=== PATIENT | male | born 1995 | race Two or more races ===

== ENCOUNTER 2025-02-15 17:33 | Emergency (ER) | payer MEDICAID, SELFPAY ==
[2025-02-15 17:34] VITALS: BMI 59.7
[2025-02-15 18:00] VITALS: BP 138/83; PULSE 116; RESP 18; TEMP 37.1; O2SAT 96; BMI 58.8
--- NOTE | 2025-02-15 18:02 | XR_ITS ---
Examination: CT abdomen and pelvis without contrast. Coronal 3-D reconstructions. Sagittal 2-D reconstructions. Date and time of exam:February 15, 2025 at 1859 hours INDICATIONS: Right lower abdominal pain beginning 3 days ago CTDI: vol (mGy): 23.1 DLP: (mGycm): 1836 Technique: Axial images of the abdomen have been obtained, 3 mm slice thickness Intravenous contrast material has not been administered. Low dose protocols were performed. One or more of the following dose reduction techniques were used; automated exposure control, adjustment of the mA and/or KV according to patient size, use of iterative reconstruction technique. Findings: Subtle opacity right base, consider mild right base pneumonia No visualized adverse splenic lesion No gallstones No hydronephrosis Atrophic left kidney Markedly abnormal small bowel loops in the central abdomen, wall thickening and marked edema surrounding the bowel loops Contracted urinary bladder No prostatomegaly Osseous structures are intact IMPRESSION: Mild right base pneumonia. Markedly abnormal small bowel loops in the central abdomen, wall thickening and marked edema surrounding the bowel loops in the mesentery, differential would include severe enteritis such as Crohn's disease, ischemic small bowel, early small bowel obstruction Recommend repeating this examination with intravenous contrast
--- NOTE | 2025-02-15 18:03 | PD.EDRME ---
Rapid Medical Screening Exam RME Arrival date/time: 02/15/25 17:33 29-year-old male presents to the emergency department today for complaints of abdominal pain and constipation Chief Complaint: Abdominal Pain Vital signs: Vital Signs Temperature 98.8 F 02/15/25 18:00 Pulse Rate 116 H 02/15/25 18:00 Respiratory Rate 18 02/15/25 18:00 Blood Pressure 138/83 H 02/15/25 18:00 Pulse Oximetry (%) 96 02/15/25 18:00 Oxygen Delivery Method Room Air 02/15/25 18:00
[2025-02-15 18:38] LABS: Basophils % (Auto) 0 % (0-2.5); Eosinophils # (Auto) 0.2 Thou/mm3 (0.0-0.5); Eosinophils % (Auto) 1 % (0-10); Hemoglobin 15.1 g/dL (13.5-16.0); Immature Granulocytes % (Auto) 1 % (0-0); Immature Granulocytes Auto 0.28 Thou/mm3 (0.00-0.00); Lymphocytes # (Auto) 2.1 Thou/mm3 (1.0-4.8); Lymphocytes % (Auto) 11 % (10-50); Mean Corpuscular HGB Conc 34.3 g/dl (31.0-37.0); Mean Corpuscular Hemoglobin 30.1 pg (25.0-35.0); Mean Corpuscular Volume 88 fL (80-100); Monocytes # (Auto) 2.3 Thou/mm3 (0.0-0.8); Monocytes % (Auto) 12 % (0-12); Neutrophils # (Auto) 14.8 Thou/mm3 (1.8-7.7); Neutrophils % (Auto) 75 % (37-80); Nucleated Red Blood Cell % 0 /100 WBC (0); Platelet Count 298 Thou/mm3 (140-440); RDW Standard Deviation 41.8 fL (35.1-43.9); Red Blood Count 5.02 Miln/mm3 (4.50-5.90); White Blood Count 19.7 Thou/mm3 (3.8-10.6)
[2025-02-15 18:40] LABS: Collection Type, Urine Clean Catch
[2025-02-15 18:45] LABS: Path Review Blood Smear Sent to Pathologist
[2025-02-15 18:49] LABS: Alanine Aminotransferase 27 U/L (10-49); Albumin, Serum 4.5 gm/dL (3.5-5.0); Albumin/Globulin Ratio 1.3 (1.2-2.2); Alkaline Phosphatase 69 U/L (46-116); Anion Gap 8 (7-16); Aspartate Amino Transferase 16 U/L (0-34); BUN/Creatinine Ratio 11 Ratio (12-20); Bilirubin,Total 1.4 mg/dL (0.3-1.2); Blood Urea Nitrogen 11 mg/dL (9-23); Calcium 9.2 mg/dL (8.3-10.6); Calcium (Corrected) 9.2 mg/dL (8.5-10.1); Carbon Dioxide 26.9 mMol/L (20.0-31.0); Chloride 101 mMol/L (98-107); Globulin 3.4 gm/dL (2.3-3.5); Glucose 119 mg/dL (74-106); Lipase 25 U/L (12-53); Osmolality,Calculated 272 (275-295); Potassium 4.4 mMol/L (3.4-5.1); Sodium 136 mMol/L (136-145); Total Protein 7.9 gm/dL (5.7-8.2); eGFR > 60 See Note
[2025-02-15 19:02] LABS: Bilirubin,Urine 1+ (Negative); Blood,Urine 1+ (Negative); Clarity,Urine Clear (Clear/Hazy); Color,Urine Yellow (Lt Yel-Yel); Culture Indicated,Urine Not Indicated; Glucose, Urine Negative (Negative); Hyaline Casts,Urine < 1 /hpf (0-1); Ketones,Urine 1+ (Negative); Leukocyte Esterase,Urine Negative (Negative); Nitrite,Urine Negative (Negative); PH,Urine 6.5 (5.0-7.0); Protein,Urine 3+ (Neg - Trace); RBC,Urine 11 /hpf (0-3); Specific Gravity,Urine 1.032 (1.001-1.035); Squamous Epithelial Cell,Urine 1 /hpf (0-5); WBC,Urine 3 /hpf (0-5)
[2025-02-16 03:34] VITALS: BP 158/112; PULSE 110; RESP 18; O2SAT 93
[2025-02-16 04:09] VITALS: BP 126/83; PULSE 111; RESP 18; RESP 19; TEMP 37.6; O2SAT 96
--- NOTE | 2025-02-16 04:20 | XR_ITS ---
Examination: CT abdomen with intravenous contrast CT pelvis with intravenous contrast 2-D coronal reconstructions 2-D sagittal reconstructions Date and time of exam:February 16, 2025 at 0549 hours Comparison February 15, 2025 study without contrast. CTDI: vol (mGy) 23.9 DLP: (mGycm) 1615 Technique: Multiple axial sections of the abdomen and pelvis have been obtained. 64 slice high-resolution scanner used. 3 mm axial sections have been obtained, post intravenous injection abdominal pain beginning 3 days ago 2-D sagittal, coronal reconstructions obtained. Low dose protocols were performed. One or more of the following dose reduction techniques were used; automated exposure control, adjustment of the mA and/or KV according to patient size, use of iterative reconstruction technique. Findings: Soft nodular opacities at the right base consistent with pneumonia No focal liver or splenic lesions No gallstones Atrophic left kidney Markedly abnormal small bowel loops in the midabdomen are again noted, wall thickening and very pronounced mesenteric edema There are multiple small periaortic and paracaval lymph nodes as well as lymph nodes in the mesentery The bladder is contracted Edema extends into the pelvis The osseous structures appear intact Negative for pneumoperitoneum IMPRESSION: Soft nodular opacities at the right base consistent with pneumonia Markedly abnormal small bowel loops in the midabdomen are again noted, wall thickening and very pronounced mesenteric edema, with periaortic pericaval and mesenteric lymphadenopathy. Differential would include severe enteritis such as Crohn's disease, ischemic small bowel as well as mesenteric and small bowel involvement by tumor such as Hodgkin's disease, non-Hodgkin's lymphoma, clinical correlation is advised Recommend surgical consultation
--- NOTE | 2025-02-16 04:42 | PD.EDABDPN ---
ED Abdominal Pain RME/HPI General Chief Complaint: Abdominal Pain Stated complaint: RLQ ABD PAIN X 3 DAYS; CONSTIPATED Time seen by provider: 02/16/25 04:44 Arrival date/time: 02/15/25 17:33 RME / HPI RME / HPI narrative: 02/15/25 17:33 29-year-old male presents to the emergency department today for complaints of abdominal pain and constipation DR PERSON MAIN ED EVALUATION: 29 y/o male with Hx of Obesity presents to ED c/o abdominal pain and constipation x 4 days. Patient had 1 episode of diarrhea while in ED. Patient report not eating due to lack of appetite. Patient denies mucus, bloody and tarry stool or any other associated symptoms or aggravating factors. No modifying factors, no radiation, no migration. No pain reported overall. No other concerns or complaints expressed at this time. Related Data Allergies Allergy/AdvReac Type Severity Reaction Status Date / Time No Known Allergies Allergy Verified 02/15/25 17:36 Review of Systems Review of Systems Systems Reviewed: All systems reviewed, normal except as documented Past Medical History Past Medical History GASTROINTESTINAL: Positive Obesity ED Exam Narrative Physical exam: GENERAL APPEARANCE: alert and oriented x 4, well-developed, well-nourished, no acute distress, Obese VITALS: All vitals were reviewed and the pulse ox is 96% on room air, which is normal according to my interpretation. HEENT: Normocephalic, atraumatic; pupils equal, round, reactive to light; EOMI; mucous membranes pink, moist; oropharynx clear NECK: Supple LUNGS: CTABL; no wheezes, no rales, no rhonchi HEART: Regular rate, regular rhythm; normal S1, S2; no murmurs ABDOMEN: non distended; normal BS; soft, right-sided abdominal tenderness, no guarding, no rebound; no masses, no organomegaly, no hernia BACK: no CVA tenderness EXTREMITIES: atraumatic; no edema NEUROLOGIC: awake; alert and oriented x4; cranial nerves II-XII grossly intact; no focal sensory or motor deficits PSYCHIATRIC: appropriate mood and affect SKIN: warm, dry, normal color; no rashes Course Quality Measures none Orders Category Date Time Status CT Screening NOW Care 02/16/25 04:[address] abdomen pelvis w con Stat Exams 02/16/25 04:[address] abdomen pelvis wo con Stat Exams 02/15/25 18:02 Completed CBC Stat Lab 02/15/25 18:18 Completed Comprehensive Metabolic Panel Stat Lab 02/15/25 18:18 Completed Lipase Stat Lab 02/15/25 18:18 Completed Path Review Blood Smear Stat Lab 02/15/25 18:18 Completed UA, C/S IF [Urinalysis, C/S if Indicated] Stat Lab 02/15/25 18:15 Completed Vital Signs Vital signs: Vital Signs Temperature 98.8 F 02/15/25 18:00 Pulse Rate 116 H 02/15/25 18:00 Respiratory Rate 18 02/15/25 18:00 Blood Pressure 138/83 H 02/15/25 18:00 Pulse Oximetry (%) 96 02/15/25 18:00 Oxygen Delivery Method Room Air 02/15/25 18:00 Abdominal Pain MDM MDM Narrative MDM Narrative:: Scribe Attestation: I, Armida Parekh, am scribing for and in the presence of Dr. Person. Provider Notation: Although this document has been carefully reviewed, there may still be some phonetic and other typographical errors.? These errors are purely grammatical due to imperfections in the software program and should not be construed in any way to? compromise the substance of the patient's medical care during this visit. 0600: Care signed out to [facility] day shift provider. Past medical, surgical, social and family history reviewed. Vitals and home medications reviewed. Results and treatment plan discussed. They will assume the care of the patient at this time and will follow the patient, pending CT and final disposition. Patient data External records reviewed:: [facility] previous records (No prior ED records available for review.) Clinical information provided by:: patient Social determinants that could affect healthcare access:: none Patient has the following chronic illnesses:: Obesity How is presenting disease/condition affected by chronic disease/condition?: exacerbated by Evaluation data The following diagnostics were reviewed and interpreted by me:: lab results and radiology exam(s) Lab and/or radiology exams considered but not ordered:: None Interpretation Summary: RADIOLOGY Abdomen/Pelvis CT w/o Contrast: Patient: GARRETT SMALLWOOD [facility]. Record#: [id number] Birthdate: 1995 Age/Sex: 29 / M Location: [facility] Attending Dr: Ordering Physician: Piotr BORJA)Say NP Date of Service: 02/15/25 Procedure(s): CT abdomen pelvis wo con Accession Number(s): [id number] cc: Piotr BORJA),Say HOPKINS; Elder Murillo MD; bAram Guerrero MD~ Examination: CT abdomen and pelvis without contrast. Coronal 3-D reconstructions. Sagittal 2-D reconstructions. Date and time of exam:February 15, 2025 at 1859 hours INDICATIONS: Right lower abdominal pain beginning 3 days ago CTDI: vol (mGy): 23.1 DLP: (mGycm): 1836 Technique: Axial images of the abdomen have been obtained, 3 mm slice thickness Intravenous contrast material has not been administered. Low dose protocols were performed. One or more of the following dose reduction techniques were used; automated exposure control, adjustment of the mA and/or KV according to patient size, use of iterative reconstruction technique. Findings: Subtle opacity right base, consider mild right base pneumonia No visualized adverse splenic lesion No gallstones No hydronephrosis Atrophic left kidney Markedly abnormal small bowel loops in the central abdomen, wall thickening and marked edema surrounding the bowel loops Contracted urinary bladder No prostatomegaly Osseous structures are intact IMPRESSION: Mild right base pneumonia. Markedly abnormal small bowel loops in the central abdomen, wall thickening and marked edema surrounding the bowel loops in the mesentery, differential would include severe enteritis such as Crohn's disease, ischemic small bowel, early small bowel obstruction Recommend repeating this examination with intravenous contrast Dictated By: Abram Guerrero MD Signed By: <Electronically signed by Abram Guerrero MD in OV> 02/15/251933 Abdomen/Pelvis CT w/ Contrast: Pending CT and official radiology report. Medications / Prescriptions Medications or Prescriptions considered but not ordered:: None Medication administrations:: See above if any. Consultations Consultation(s) initiated? (list below): No Diagnosis Differential diagnosis abdominal pain: abdominal pain, acute appendicitis, calculus of kidney, constipation, diverticulitis, gastroenteritis, pancreatitis and small bowel obstruction Most likely diagnosis given after review of the tests above:: abdominal pain Admission Indicated Admission indicated?: not indicated Explain why admission is indicated or not indicated:: Pending CT and final disposition. Admission Request Was there a request for admission?: No Disposition Plan Disposition Plan: other (specify) (Sign-out to oncoming ED physician at 6 AM.) Discharge Plan Prescriptions/Referrals Referrals: Elder Murillo MD [Primary Care Provider] - In 1 week Problem List Clinical Impression: Abdominal pain Patient/Caregiver Discharge Instructions Print Language: Venezuelan
[2025-02-16 05:00] VITALS: BP 116/77; PULSE 109; RESP 18; O2SAT 95
--- NOTE | 2025-02-16 05:16 | PC.NURSE ---
pt is asleep. ged instructor notified that pt is ready for ct.
--- NOTE | 2025-02-16 05:49 | PC.LAC ---
pt taken to CT by environmental health technician.
[2025-02-16 06:43] VITALS: BP 127/81; PULSE 106; RESP 18; TEMP 37.3; O2SAT 95
--- NOTE | 2025-02-16 06:54 | PC.NURSE ---
pot has been asleep for most of the time in rm 9. pt up to bathroom now.
--- NOTE | 2025-02-16 07:15 | PC.NURSE ---
0715 ASSUMED CARE, PT DENIES ANY CURRENT PAIN OR DISCOMFORT, PT UPDATED ON PPOC, AND PENDING RESULTS, AND IN AGREEMENT.
--- NOTE | 2025-02-16 07:19 | EDNOTE_ITS ---
Emergency Room Addendum Addendum Narrative: 0600: Care assumed from Dr. Person, the previous shift emergency physician. Past medical, surgical, social and family history reviewed. Vitals and home medications reviewed. I will assume the care of the patient at this time, pending diagnostic tests and final disposition. Please refer to the emergency department record for history and examination from initial visit.? Physical exam by me shows patient under no acute distress at this time. Patient has pneumonia and gastroenteritis. Plan to discharge the patient. 0808: Patient remains clinically stable throughout the emergency department visit. Re-assessment at the time of disposition demonstrates that the patient is in no acute distress. We reviewed all the results, analysis, and treatment plans. Patient is amenable to discharge. Strict return precautions were outlined. Patient was discharged in stable condition. Results Objective Laboratory: Laboratory Last Values WBC 19.7 Thou/mm3 (3.8-10.6) H 02/15/25 18:18 RBC 5.02 Miln/mm3 (4.50-5.90) 02/15/25 18:18 Hgb 15.1 g/dL (13.5-16.0) 02/15/25 18:18 Hct 44.0 % (41.0-53.0) 02/15/25 18:18 MCV 88 fL (80-100) 02/15/25 18:18 MCH 30.1 pg (25.0-35.0) 02/15/25 18:18 MCHC 34.3 g/dl (31.0-37.0) 02/15/25 18:18 RDW Std Deviation 41.8 fL (35.1-43.9) 02/15/25 18:18 Plt Count 298 Thou/mm3 (140-440) 02/15/25 18:18 Neut % (Auto) 75 % (37-80) 02/15/25 18:18 Lymph % (Auto) 11 % (10-50) 02/15/25 18:18 [place] % (Auto) 12 % (0-12) 02/15/25 18:18 Eos % (Auto) 1 % (0-10) 02/15/25 18:18 Baso % (Auto) 0 % (0-2.5) 02/15/25 18:18 Neut # (Auto) 14.8 Thou/mm3 (1.8-7.7) H 02/15/25 18:18 Lymph # (Auto) 2.1 Thou/mm3 (1.0-4.8) 02/15/25 18:18 [place] # (Auto) 2.3 Thou/mm3 (0.0-0.8) H 02/15/25 18:18 Eos # (Auto) 0.2 Thou/mm3 (0.0-0.5) 02/15/25 18:18 Baso # (Auto) 0.0 Thou/mm3 (0.0-0.2) 02/15/25 18:18 Immature Gran # (Auto) 0.28 Thou/mm3 (0.00-0.00) H 02/15/25 18:18 Absolute Nucleated RBC 0.00 Thou/mm3 (0.00-0.00) 02/15/25 18:18 Immature Gran % 1 % (0-0) H 02/15/25 18:18 Nucleated RBC % 0 /100 WBC (0) 02/15/25 18:18 Smear Path Review Sent to Pathologist 02/15/25 18:18 Sodium 136 mMol/L (136-145) 02/15/25 18:18 Potassium 4.4 mMol/L (3.4-5.1) 02/15/25 18:18 Chloride 101 mMol/L (98-107) 02/15/25 18:18 Carbon Dioxide 26.9 mMol/L (20.0-31.0) 02/15/25 18:18 Anion Gap 8 (7-16) 02/15/25 18:18 BUN 11 mg/dL (9-23) 02/15/25 18:18 Creatinine 1.0 mg/dL (0.6-1.3) 02/15/25 18:18 Estim Creat Clear Calc 164.0 mL/min (>60) 02/15/25 18:18 eGFR > 60 See Note (60-) 02/15/25 18:18 BUN/Creatinine Ratio 11 Ratio (12-20) L 02/15/25 18:18 Glucose 119 mg/dL (74-106) H 02/15/25 18:18 Calculated Osmolality 272 (275-295) L 02/15/25 18:18 Calcium 9.2 mg/dL (8.3-10.6) 02/15/25 18:18 Corrected Calcium 9.2 mg/dL (8.5-10.1) 02/15/25 18:18 Total Bilirubin 1.4 mg/dL (0.3-1.2) H 02/15/25 18:18 AST 16 U/L (0-34) 02/15/25 18:18 ALT 27 U/L (10-49) 02/15/25 18:18 Alkaline Phosphatase 69 U/L (46-116) 02/15/25 18:18 Total Protein 7.9 gm/dL (5.7-8.2) 02/15/25 18:18 Albumin 4.5 gm/dL (3.5-5.0) 02/15/25 18:18 Globulin 3.4 gm/dL (2.3-3.5) 02/15/25 18:18 Albumin/Globulin Ratio 1.3 (1.2-2.2) 02/15/25 18:18 Lipase 25 U/L (12-53) 02/15/25 18:18 Ur Collection Type Clean Catch 02/15/25 18:15 Urine Color Yellow (Lt Yel-Yel) 02/15/25 18:15 Urine Clarity Clear (Clear/Hazy) 02/15/25 18:15 Urine pH 6.5 (5.0-7.0) 02/15/25 18:15 Ur Specific [place] 1.032 (1.001-1.035) 02/15/25 18:15 Urine Protein 3+ (Neg - Trace) A 02/15/25 18:15 Urine Glucose (UA) Negative (Negative) 02/15/25 18:15 Urine Ketones 1+ (Negative) A 02/15/25 18:15 Urine Blood 1+ (Negative) A 02/15/25 18:15 Urine Nitrite Negative (Negative) 02/15/25 18:15 Urine Bilirubin 1+ (Negative) A 02/15/25 18:15 Urine Urobilinogen (Auto) 6.0 mg/dL (0.0-1.0) 02/15/25 18:15 Ur Leukocyte Esterase Negative (Negative) 02/15/25 18:15 Urine RBC 11 /hpf (0-3) H 02/15/25 18:15 Urine WBC 3 /hpf (0-5) 02/15/25 18:15 Ur Squamous Epith Cells 1 /hpf (0-5) 02/15/25 18:15 Urine Bacteria None (None) 02/15/25 18:15 Hyaline Casts < 1 /hpf (0-1) 02/15/25 18:15 Ur Culture Indicated? Not Indicated 02/15/25 18:15 Imaging: Procedure(s): CT abdomen pelvis wo con Accession Number(s): [id number] cc: Piotr (KELLIE),Say HOPKINS; Elder Murillo MD; Abram Guerrero MD~ Examination: CT abdomen and pelvis without contrast. Coronal 3-D reconstructions. Sagittal 2-D reconstructions. Date and time of exam:February 15, 2025 at 1859 hours INDICATIONS: Right lower abdominal pain beginning 3 days ago CTDI: vol (mGy): 23.1 DLP: (mGycm): 1836 Technique: Axial images of the abdomen have been obtained, 3 mm slice thickness Intravenous contrast material has not been administered. Low dose protocols were performed. One or more of the following dose reduction techniques were used; automated exposure control, adjustment of the mA and/or KV according to patient size, use of iterative reconstruction technique. Findings: Subtle opacity right base, consider mild right base pneumonia No visualized adverse splenic lesion No gallstones No hydronephrosis Atrophic left kidney Markedly abnormal small bowel loops in the central abdomen, wall thickening and marked edema surrounding the bowel loops Contracted urinary bladder No prostatomegaly Osseous structures are intact IMPRESSION: Mild right base pneumonia. Markedly abnormal small bowel loops in the central abdomen, wall thickening and marked edema surrounding the bowel loops in the mesentery, differential would include severe enteritis such as Crohn's disease, ischemic small bowel, early small bowel obstruction Recommend repeating this examination with intravenous contrast Dictated By: Abram Guerrero MD Procedure(s): CT abdomen pelvis w con Accession Number(s): [id number] cc: Elder Murillo MD; Abram Guerrero MD; Bailey Person MD~ Examination: CT abdomen with intravenous contrast CT pelvis with intravenous contrast 2-D coronal reconstructions 2-D sagittal reconstructions Date and time of exam:February 16, 2025 at 0549 hours Comparison February 15, 2025 study without contrast. CTDI: vol (mGy) 23.9 DLP: (mGycm) 1615 Technique: Multiple axial sections of the abdomen and pelvis have been obtained. 64 slice high-resolution scanner used. 3 mm axial sections have been obtained, post intravenous injection abdominal pain beginning 3 days ago 2-D sagittal, coronal reconstructions obtained. Low dose protocols were performed. One or more of the following dose reduction techniques were used; automated exposure control, adjustment of the mA and/or KV according to patient size, use of iterative reconstruction technique. Findings: Soft nodular opacities at the right base consistent with pneumonia No focal liver or splenic lesions No gallstones Atrophic left kidney Markedly abnormal small bowel loops in the midabdomen are again noted, wall thickening and very pronounced mesenteric edema There are multiple small periaortic and paracaval lymph nodes as well as lymph nodes in the mesentery The bladder is contracted Edema extends into the pelvis The osseous structures appear intact Negative for pneumoperitoneum IMPRESSION: Soft nodular opacities at the right base consistent with pneumonia Markedly abnormal small bowel loops in the midabdomen are again noted, wall thickening and very pronounced mesenteric edema, with periaortic pericaval and mesenteric lymphadenopathy. Differential would include severe enteritis such as Crohn's disease, ischemic small bowel as well as mesenteric and small bowel involvement by tumor such as Hodgkin's disease, non-Hodgkin's lymphoma, clinical correlation is advised Recommend surgical consultation Dictated By: Abram Guerrero MD
== END 2025-02-16 09:28 | disposition home or self-care (01) ==
PROVIDERS: Nurse Practitioner Primary Care; Emergency Provider Emergency Medicine; PCP Family Medicine
DX: R10.9 Unspecified abdominal pain (principal); J18.9 Pneumonia, unspecified organism; K63.89 Other specified diseases of intestine; E66.9 Obesity, unspecified; Z68.43 Body mass index [BMI] 50.0-59.9, adult
CPT/HCPCS: 36415; 74176; 74177; 80053; 81001; 83690; 85025; 99285; A4649; Q9967

== ENCOUNTER 2025-02-18 13:15 | Inpatient (IN) | payer MEDICAID, SELFPAY ==
[2025-02-18] VITALS (13 sets, daily range): BP systolic 123–175; BP diastolic 86–130; PULSE 105–123; RESP 16–27; TEMP 36.4–37; O2SAT 93–97; BMI 58.1
--- NOTE | 2025-02-18 13:31 | XR_ITS ---
Examination: Duplex scan of the lower extremity, unilateral right Date and time of exam: February 18, 2025 1333 hours INDICATIONS: Right leg swelling and pain beginning 3 days ago Technique: Duplex scan of the extremity veins using B-mode/grayscale imaging and Doppler spectral analysis and color flow Attention is directed to internal echogenicity, compression and augmentation involving these veins, color flow assessment, spectral analysis Findings: Positive for occlusive thrombus involving the right common femoral, superficial femoral, popliteal, peroneal veins Posterior tibial vein not diagnostically visualized Thrombus also in the superficial greater saphenous vein IMPRESSION:: Positive for extensive acute occlusive deep vein thrombus in the right lower extremity..
--- NOTE | 2025-02-18 13:32 | PD.EDRME ---
Rapid Medical Screening Exam E Arrival date/time: 02/18/25 13:15 29-year-old male with no known medical history presents to the emergency room with a chief complaint of right leg swelling and tenderness x 2 days. I have greeted and performed a focused initial assessment of this patient. A comprehensive ED assessment and evaluation of the patient, analysis of all test results, and completion of the medical decision making process will be conducted by additional ED providers. Chief Complaint: Extremity Injury, Lower Time Seen by Provider: 02/18/25 13:26 Vital signs: Vital Signs Temperature 97.6 F 02/18/25 13:22 Pulse Rate 123 H 02/18/25 13:22 Respiratory Rate 20 02/18/25 13:22 Blood Pressure 146/93 H 02/18/25 13:22 Pulse Oximetry (%) 95 02/18/25 13:22 Oxygen Delivery Method Room Air 02/18/25 13:22 Vital signs reviewed by provider: Yes
[2025-02-18 13:54] LABS: Basophils # (Auto) 0.1 Thou/mm3 (0.0-0.2); Basophils % (Auto) 0 % (0-2.5); Eosinophils # (Auto) 0.2 Thou/mm3 (0.0-0.5); Eosinophils % (Auto) 1 % (0-10); Hematocrit 43.4 % (41.0-53.0); Hemoglobin 14.8 g/dL (13.5-16.0); Immature Granulocytes % (Auto) 1 % (0-0); Immature Granulocytes Auto 0.18 Thou/mm3 (0.00-0.00); Lymphocytes # (Auto) 1.8 Thou/mm3 (1.0-4.8); Lymphocytes % (Auto) 7 % (10-50); Mean Corpuscular HGB Conc 34.1 g/dl (31.0-37.0); Mean Corpuscular Hemoglobin 30.2 pg (25.0-35.0); Mean Corpuscular Volume 89 fL (80-100); Monocytes % (Auto) 7 % (0-12); Neutrophils # (Auto) 22.4 Thou/mm3 (1.8-7.7); Neutrophils % (Auto) 84 % (37-80); Nucleated Red Blood Cell % 0 /100 WBC (0); Platelet Count 299 Thou/mm3 (140-440); RDW Standard Deviation 41.5 fL (35.1-43.9); White Blood Count 26.7 Thou/mm3 (3.8-10.6)
[2025-02-18 14:13] LABS: INR 1.1 (0.9-1.3); Partial Thromboplastin Time 38.6 Seconds (22.0-36.0); Prothrombin Time 12.3 Seconds (9.0-12.2)
[2025-02-18 14:16] LABS: Alanine Aminotransferase 56 U/L (10-49); Albumin, Serum 4.5 gm/dL (3.5-5.0); Albumin/Globulin Ratio 1.2 (1.2-2.2); Alkaline Phosphatase 106 U/L (46-116); Anion Gap 10 (7-16); Aspartate Amino Transferase 39 U/L (0-34); BUN/Creatinine Ratio 15 Ratio (12-20); Bilirubin,Total 1.6 mg/dL (0.3-1.2); Blood Urea Nitrogen 17 mg/dL (9-23); Calcium 9.5 mg/dL (8.3-10.6); Calcium (Corrected) 9.5 mg/dL (8.5-10.1); Carbon Dioxide 24.7 mMol/L (20.0-31.0); Chloride 96 mMol/L (98-107); Creatinine (Component) 1.1 mg/dL (0.6-1.3); Estimated Creatinine Clearance 147.8 mL/min (>60); Globulin 3.9 gm/dL (2.3-3.5); Glucose 137 mg/dL (74-106); Osmolality,Calculated 266 (275-295); Potassium 4.5 mMol/L (3.4-5.1); Sodium 131 mMol/L (136-145); Total Protein 8.4 gm/dL (5.7-8.2); eGFR > 60 See Note
--- NOTE | 2025-02-18 15:29 | PD.EDEXREM ---
ED Extremity Problem RME/HPI General Chief complaint: Extremity Injury, Lower Stated complaint: Right leg swollen, hard, red Time Seen by Provider: 02/18/25 13:26 Arrival date/time: 02/18/25 13:15 Limitations: no limitations RME / HPI RME / HPI Narrative: 02/18/25 13:15 29-year-old male with no known medical history presents to the emergency room with a chief complaint of right leg swelling and tenderness x 2 days. I have greeted and performed a focused initial assessment of this patient. A comprehensive ED assessment and evaluation of the patient, analysis of all test results, and completion of the medical decision making process will be conducted by additional ED providers. DR. ACUÑA MAIN ED EVALUATION: 29 year old male with no significant medical history presents to the ED for evaluation of worsening right leg pain and swelling that began 2 days ago. Describes the pain as diffuse throughout the leg, with the most severe discomfort localized to the calf and knee. Pain is described as moderate in intensity and is aggravated by palpation. Denies any recent falls, injuries, or trauma to the leg. Denies fevers or any history of similar symptoms. Related Data Previous Rx's ?Medication ?Instructions ?Recorded dicyclomine 20 mg tablet 20 mg PO QID PRN abdominal pain 02/16/25 #14 tabs ondansetron 4 mg disintegrating 4 mg PO Q8H PRN nausea and 02/16/25 tablet vomiting #20 tabs Allergies Allergy/AdvReac Type Severity Reaction Status Date / Time No Known Allergies Allergy Verified 02/18/25 13:20 Review of Systems Review of Systems Systems Reviewed: All systems reviewed, normal except as documented Past Medical History Past Medical History CARDIAC: Negative Cardiac Disorders or Congestive Heart Failure RESPIRATORY: Negative Chronic Obstructive Pulmonary Disease (COPD) or Asthma GASTROINTESTINAL: Positive Obesity GENITOURINARY: Negative Renal Disease ENDOCRINE: Negative Diabetes Mellitus Type 1 or Diabetes Mellitus Type 2 HEMATOLOGIC: Negative Sickle Cell Disease Social History SMOKING STATUS: Never smoker ED Exam General Limitations: Present no limitations General appearance: Present alert, in no apparent distress and obese Head Head exam: Present atraumatic and normocephalic Eye Eye exam: Present normal appearance, PERRL and EOMI ENT ENT exam: Present normal exam, normal oropharynx and mucous membranes moist Neck Neck exam: Present normal inspection, full ROM and trachea midline Chest Chest inspection: Present normal inspection and symmetric chest wall rise Respiratory Respiratory exam: Present normal lung sounds bilaterally Cardiovascular Cardiovascular exam: Present regular rate, normal rhythm and normal heart sounds Abdominal Exam Abdominal exam: Present soft and normal bowel sounds Extremities Exam Extremities exam: Present full ROM and other (Tenderness, redness, and swelling to the right leg up to the thigh with a rash) Back Exam Back exam: Present normal inspection and full ROM Neurological Exam Neurological exam: Present alert, oriented X3 and CN II-XII intact Psychiatric Psychiatric exam: Present normal affect and normal mood Skin Skin exam: Present warm, dry, intact and normal color Course Quality Measures none Orders Category Date Time Status COVID-19 Screening Questionnaire NOW Care 02/18/25 16:28 Active Decision to Admit X1 Care 02/18/25 16:28 Active Notify provider NOW Care 02/18/25 16:26 Active US venous doppler LE RT Stat Exams 02/18/25 13:31 Completed CBC Stat Lab 02/18/25 13:45 Completed CMP [Comprehensive Metabolic Panel] Stat Lab 02/18/25 13:45 Completed PT [Prothrombin Time with INR] Stat Lab 02/18/25 13:45 Completed PTT [Partial Thromboplastin Time] Stat Lab 02/18/25 13:45 Completed Partial Thromboplastin Time AM DRAW Lab 02/20/25 05:00 Ordered Prothrombin Time with INR AM DRAW Lab 02/20/25 05:00 Ordered Heparin Inj Med 02/18/25 16:25 Discontinued 4,000 unit IV X1 ONE Heparin/D5w 25K 250 ML Ivpb [Heparin in D5w Ivpb] Med 02/18/25 16:30 Active 25,000 unit in 250 ml IV 11 units/kg/hr Vital Signs Vital signs: Vital Signs Temperature 97.6 F 02/18/25 13:22 Pulse Rate 123 H 02/18/25 13:22 Respiratory Rate 20 02/18/25 13:22 Blood Pressure 146/93 H 02/18/25 13:22 Pulse Oximetry (%) 95 02/18/25 13:22 Oxygen Delivery Method Room Air 02/18/25 13:22 Pulse ox is 95% on room air which is adequate. Extremity Problem MDM Narrative MDM Narrative:: Tita Waddell am scribing for and in the presence of Dr. Acuña. Assessment: Right acute cellulitis, most likely due to strep, rule out DVT. Plan: Ultrasound of the right leg to evaluate for DVT, labs, and Rocephin Patient meets indications for TNK in DVT. Patient data External records reviewed:: [facility] previous records (I reviewed ED visit on 02/16/2025 for abdominal pain ) Clinical information provided by:: patient Social determinants that could affect healthcare access:: none Patient has the following chronic illnesses:: None How is presenting disease/condition affected by chronic disease/condition?: no chronic disease Evaluation data The following diagnostics were reviewed and interpreted by me:: lab results and radiology exam(s) Lab and/or radiology exams considered but not ordered:: none Interpretation Summary: Ordering Physician: Negro Sadler Date of Service: 02/18/25 Procedure(s): US venous doppler LE RT Accession Number(s): [id number] cc: Negro Sadler; Abram Guerrero MD; NO PRIMARY/FAMILY,PHYSICIAN~ Examination: Duplex scan of the lower extremity, unilateral right Date and time of exam: February 18, 2025 1333 hours INDICATIONS: Right leg swelling and pain beginning 3 days ago Technique: Duplex scan of the extremity veins using B-mode/grayscale imaging and Doppler spectral analysis and color flow Attention is directed to internal echogenicity, compression and augmentation involving these veins, color flow assessment, spectral analysis Findings: Positive for occlusive thrombus involving the right common femoral, superficial femoral, popliteal, peroneal veins Posterior tibial vein not diagnostically visualized Thrombus also in the superficial greater saphenous vein IMPRESSION:: Positive for extensive acute occlusive deep vein thrombus in the right lower extremity.. Dictated By: Abram Guerrero MD Signed By: <Electronically signed by Abram Guerrero MD in OV> 02/18/25 1421 Medications / Prescriptions Medications or Prescriptions considered but not ordered:: None Medication administrations:: Medication Administration History Acetaminophen (Acetaminophen 325 Mg Tablet) 650 mg PO Q6H PRN PRN Reason: Fever >100.4 Stop: 03/20/25 16:58 Heparin Sodium/Dextrose (Heparin In D5w Ivpb) 25,000 unit in 250 mls @ 17.962 mls/hr IV .[id number] [facility]; Protocol Stop: 03/04/25 16:29 Last Admin: 02/18/25 16:52 Dose: 11 units/kg/hr, 17.962 mls/hr Documented By: CG Co-signed By: DO Ondansetron HCl (Ondansetron Inj 2 Mg/Ml Inj 2 Ml) 4 mg IVP Q6H PRN; Protocol PRN Reason: NAUSEA OR VOMITING Stop: 03/20/25 16:58 Oxycodone/Acetaminophen (Oxycodone/Apap 5/325 Tablet) 1 tab PO Q6H PRN PRN Reason: Pain Scale 6 - 10 Stop: 02/23/25 16:58 Pantoprazole Sodium (Pantoprazole 40 Mg Tablet) 40 mg PO QDAY MIKE Stop: 03/21/25 08:59 Sennosides (Senna Tablet) 1 tab PO QDAY PRN; Protocol PRN Reason: constipation Stop: 03/20/25 16:58 Discontinued Medications Heparin Sodium (Porcine) (Heparin Sod Inj 5000 Unit/Ml Vial) 4,000 unit IV X1 ONE; Protocol Stop: 02/18/25 16:26 Last Admin: 02/18/25 16:54 Dose: 4,000 unit Documented By: CG Co-signed By: DO See above Consultations Consultation(s) initiated? (list below): Yes Consultation #1 (Physician, Specialty, Details): I spoke with our radiologist Dr. Guerrero who advised placing an IV in the foot and starting the TNK through there in addition to running heparin through an IV in the upper extremity. Time: 15:30 Diagnosis Extremity Problem Differential Diagnosis: gout, cellulitis and deep vein thrombosis of lower extremity Most likely diagnosis given after review of the tests above:: DVT of RLE Admission Indicated Admission indicated?: indicated Admission Request Was there a request for admission?: Yes Admission Attestation Admission request attestation: Discussed case with [] from Hospitalist service regarding admission. Discussed patients ED course, exam findings, labs, and radiology results. The Hospitalist [agrees,declines] to accept the patient for admission. Disposition Plan Disposition Plan: Admit Critical Care Time Critical Care Time Critical Care Time: Yes Total Critical Care Time (min.): 45 Attestation: The high probability of sudden, clinically significant deterioration in the patient's condition required the highest level of my preparedness to intervene urgently. The services I provided to this patient were to treat and/or prevent clinically significant deterioration. Services included the following: chart data review, reviewing nursing notes and/or old charts, documentation time, surgery consultant collaboration regarding findings and treatment options, medication orders and management, direct patient care, vital sign assessments and ordering, interpreting and reviewing diagnostic studies and lab tests. Aggregate critical care time includes only time during which I was engaged in work directly related to the patient's care, as described above, whether at bedside or elsewhere in the Emergency Department. It did not include time spent performing other reported procedures or the services of residents, students, nurses or physician assistants. Discharge Plan Plan Patient Disposition: Admit Acute Care w/in Hospital Problem List Clinical Impression: DVT (deep venous thrombosis)
[2025-02-18] MEDS: Heparin/D5w 25K 250 ML Ivpb 25,000 UNIT/250 ML BAG 17.962 UNIT IV (16:52)
[2025-02-18] MEDS: HEPARIN SOD INJ 5000 UNIT/ML VIAL 4000 UNIT IV (16:54)
[2025-02-18 17:58] LABS: Partial Thromboplastin Time 48.5 Seconds (22.0-36.0)
--- NOTE | 2025-02-18 18:13 | PD.EVENT ---
Documentation for date of: 02/18/25 Event Note Event Note: I Mikki Yap MD reviewed the note and agree with the resident's assessment & plan with exceptions as below. I have personally reviewed labs, imaging, home meds/prior records, examined the patient, formulated and discussed management plan with the IM team. [id number] male with morbid obesity presented to ED with 1 week of right leg pain and 2 days of lower extremity edema and discoloration extending up to the mid thighs. Patient afebrile however tachycardic, significant leukocytosis and hyponatremia along with slightly elevated creatinine and total bilirubin on the labs. US duplex lower extremity did reveal extensive DVT in right lower extremity veins starting from common femoral down to the popliteal. Will start on IV heparin as per DVT protocol, consult IR for potential thrombectomy/local thrombolysis. Will also treat for cellulitis with vancomycin and Zosyn, obtain CT with contrast right lower extremity to evaluate for deep tissue infection. Patient likely has unprovoked DVT, will evaluate further for hypercoagulability and malignancy. Will obtain CT chest/abdomen/pelvis as well, repeat CBC and chemistry panel every 12 hours. Will also obtain echocardiogram for potential right heart strain in the setting of subocclusive PE. Consult hematology/oncology for further recommendations.
--- NOTE | 2025-02-18 18:26 | ESHP_ITS ---
<Statement entered by Mikki Yap MD - 02/21/25 16:07> I Mikki Yap MD reviewed the note and agree with the resident's assessment & plan with exceptions as below. I have personally reviewed labs, imaging, home meds/prior records, examined the patient, formulated and discussed management plan with the IM team. A 29-year-old male with morbid obesity presented to ED with right lower extremity pain, swelling and erythema noted to have right lower extremity cellulitis, extensive deep venous thrombosis through femoral vein to the distal tributaries. Also noted to have extensive abdominal, para-aortic paracaval lymphadenopathy. Will start on IV heparin as per DVT/PE protocol. ED consulted IR who had a plan for catheter directed thrombolytic therapy and potential thrombectomy. Follow-up with IR regarding timing/schedule for thrombectomy or catheter directed tPA administration. Obtain CT chest/abdomen/pelvis with contrast to evaluate for potential neoplastic lesions. Will also due to infectious, age-adjusted malignancy and hypercoagulable workup to evaluate the etiology of extensive thromboembolism. Will empirically start on vancomycin and Zosyn for lower extremity cellulitis/thrombophlebitis. If unable to perform thrombectomy/catheter directed tPA administration, would transfer patient to higher level of care as patient has extensive thromboembolism with cellulitis with concern for potentially adverse outcome if treated without intervention. <Statement entered by Yvon Roca MD - 02/19/25 22:26> I discussed with and supervised the kinesiology internship physician involved in the care of this patient. Patient assessment and plan was discussed with entire medicine team, including my attending. I agree with the assessment and plan as documented by kinesiology internship doctor. Patient care was discussed with my attending physician Dr. Fracisco Roca, PGY-2 Documentation for date of: 02/18/25 HPI History of Present Illness Chief complaint: Pain and swelling of right lower extremity History of present illness: A 29-year-old male with no significant past medical history presented to the hospital with chief complaints of right lower extremity pain and swelling since 1 week. Patient noted mild difficulty in walking 1 week ago but still able to do his routine daily activities. Patient came to the ED 2 days ago with lower abdominal pain and abdominal imaging is done at that time showed soft nodular opacities at the right base consistent with pneumonia, markedly abnormal small bowel loops in the abdomen and periaortic, pericaval, mesenteric lymphadenopathy. Later as patient is clinically stable, patient is discharged to home from the ED. Patient came today with a chief complaints of worsening right lower extremity swelling and pain since last 1 week and is not able to go to his work since 4 days. Denies fever, nausea, vomitings, diarrhea, SOB, chest pain, palpitations. Patient endorsed that he works in the [employer] in the hot weather and in the recent time he is not keeping himself adequately hydrated. Denies any similar complaints in the family, similar complaints in the past, weight loss ED course: - Vitals at the time of admission are significant for blood pressure 146/93 mmHg, pulse rate 123 bpm - Labs at the time of admission significant for leukocytosis, 26.7 predominantly neutrophils, sodium 131, chloride 96, total bilirubin 1.6, AST 39, ALT 56 - Venous Doppler of right lower extremity showed acute occlusive thrombus in the right lower extremity. - Patient was started on heparin drip in the ED and ED doctor reported that patient will undergo thrombolysis by interventional radiologist Past medical history: Not significant Past surgical history: Nonsignificant Social history: Endorsed alcohol intake 3 times in a week, 12 packs of beer a day, denies smoking, other illicit drug abuse Allergies: NKDA Review of Systems Review of Systems Systems Reviewed: All systems reviewed, normal except as documented Past Medical History Past Medical History CARDIAC: Negative Cardiac Disorders or Congestive Heart Failure RESPIRATORY: Negative Chronic Obstructive Pulmonary Disease (COPD) or Asthma GASTROINTESTINAL: Positive Obesity GENITOURINARY: Negative Renal Disease ENDOCRINE: Negative Diabetes Mellitus Type 1 or Diabetes Mellitus Type 2 HEMATOLOGIC: Negative Sickle Cell Disease Social History SMOKING STATUS: Never smoker Exam Vital Signs Temp Pulse Resp BP Pulse Ox O2 Del Method 98.3 F 118 H 22 H 175/116 H 95 Room Air 02/18/25 18:00 02/18/25 18:00 02/18/25 18:00 02/18/25 18:00 02/18/25 18:00 02/18/25 18:00 Narrative Exam General: Awake. HEENT: Normocephalic, atraumatic, mucous membranes moist. Heart: Regular rate and rhythm, no murmurs. Lungs: Clear to auscultation with no wheezing or crackles. Abdomen: Soft, nondistended, nontender, positive bowel sounds. ?No guarding or rebound tenderness. Neurologic: Alert and oriented x3, no gross neurological deficit, and patient able to move all 4 extremities. Extremities: Noted extensive swelling of right lower extremity extending up to mid thigh with multiple petechia. Noted mild tenderness. [place] all peripheral pulses Skin: No rash or ecchymoses. Results: Labs 02/19/25 07:14 02/19/25 07:14 Labs: Short CBC 02/18/25 Range/Units 13:45 WBC 26.7 H D (3.8-10.6) Thou/mm3 Hgb 14.8 (13.5-16.0) g/dL Hct 43.4 (41.0-53.0) % Plt Count 299 (140-440) Thou/mm3 BMP 02/18/25 13:45 Sodium 131 L Potassium 4.5 Chloride 96 L Carbon Dioxide 24.7 BUN 17 Creatinine 1.1 Glucose 137 H Calcium 9.5 Liver Function 02/18/25 Range/Units 13:45 Total Bilirubin 1.6 H (0.3-1.2) mg/dL AST 39 H (0-34) U/L ALT 56 H (10-49) U/L Alkaline Phosphatase 106 D (46-116) U/L Albumin 4.5 (3.5-5.0) gm/dL Quality Measures Quality Measures none Medications Home Medications and Allergies Allergies Allergy/AdvReac Type Severity Reaction Status Date / Time No Known Allergies Allergy Verified 02/18/25 13:20 Visit Medications Acetaminophen (Acetaminophen 325 Mg Tablet) 650 mg PO Q6H PRN PRN Reason: Fever >100.4 Stop: 03/20/25 16:58 Heparin Sodium/Dextrose (Heparin In D5w Ivpb) 25,000 unit in 250 mls @ 17.962 mls/hr IV .[id number] [facility]; Protocol Stop: 03/04/25 16:29 Last Admin: 02/18/25 16:52 Dose: 11 units/kg/hr, 17.962 mls/hr Ondansetron HCl (Ondansetron Inj 2 Mg/Ml Inj 2 Ml) 4 mg IVP Q6H PRN; Protocol PRN Reason: NAUSEA OR VOMITING Stop: 03/20/25 16:58 Oxycodone/Acetaminophen (Oxycodone/Apap 5/325 Tablet) 1 tab PO Q6H PRN PRN Reason: Pain Scale 6 - 10 Stop: 02/23/25 16:58 Pantoprazole Sodium (Pantoprazole 40 Mg Tablet) 40 mg PO QDAY MIKE Stop: 03/21/25 08:59 Sennosides (Senna Tablet) 1 tab PO QDAY PRN; Protocol PRN Reason: constipation Stop: 03/20/25 16:58 Discontinued Medications Heparin Sodium (Porcine) (Heparin Sod Inj 5000 Unit/Ml Vial) 4,000 unit IV X1 ONE; Protocol Stop: 02/18/25 16:26 Last Admin: 02/18/25 16:54 Dose: 4,000 unit Assessment & Plan Plan A 29-year-old male with no significant past medical history presented to the hospital with chief complaints of right lower extremity pain and swelling since 1 week and admitted for acute DVT of right lower extremity # Acute DVT # To rule out malignancy - Patient presented to the hospital with chief complaints of right lower extremity pain and swelling - On physical examination, noted right lower extremity swelling, erythema and multiple petechiae extending up to mid thigh with mild to moderate tenderness - Vitals at the time of admission are significant for blood pressure 146/93 mmHg, pulse rate 123 bpm - Labs at the time of admission significant for leukocytosis, 26.7 predominantly neutrophils, sodium 131, chloride 96 - Venous Doppler of right lower extremity showed acute occlusive thrombus in the right lower extremity. - Patient was started on heparin drip in the ED and ED doctor reported that patient will undergo thrombolysis by interventional radiologist - Abdominal CT done on 02/16/2025 showed extensive lymphadenopathy in the abdomen Plan - Will continue heparin drip - Ordered cocci serology as patient is working on the [employer] - Might consult processing mgr, Dr. Harris as patient had extensive lymphadenopathy to rule out GI malignancies - Started on the IV fluids, NS at 125 mL/h in view of suspected dehydration, per patient history # Transaminitis # Hyperbilirubinemia - Total bilirubin 1.6, AST 39, ALT 56 - Likely in the setting of acute illness Plan - Will monitor LFT # Obesity BMI is 58.1 Plan - Recommended to lose weight on outpatient basis # Alcohol abuse - Patient is consuming alcohol, 12 packs every other day Plan - Counseled on alcohol cessation Hospital Maintenance: Dispo: Tele GI ppx: pantoprazole Diet: Regular IV lines: Peripheral Code status:Full Patient plan of care was discussed with the attending physician, Dr. Yap and senior resident Dr. Chanelle Weber, PGY1
--- NOTE | 2025-02-18 18:53 | XR_ITS ---
Examination: CT right lower extremity with intravenous contrast, 2-D sagittal reconstructions. 2-D coronal reconstructions. 3-D reconstructions. Date and time of exam:February 18, 2025 1528 hrs. Indications: Swelling and redness in the right leg pain 2 weeks CTDI: vol (mGy):19.7 DLP: (mGycm):1994 Technique: Multiple 1.25 mm axial sections of the right lower extremity with intravenous contrast, 60 cc Isovue-370 have been obtained. 2-D sagittal and coronal reconstructions have been obtained. 3-D reconstructions have been obtained. Low dose protocols were performed. One or more of the following dose reduction techniques were used; automated exposure control, adjustment of the mA and/or KV according to patient size, use of iterative reconstruction technique. Findings: Edema in the subcutaneous fatty tissue anterior and lateral thigh This is not a CTA study which limits vascular assessment Edema also in the subcutaneous tissues surrounding the knee in the tibia fibula No soft tissue abscess Negative for osteomyelitis Impression: Cellulitis pattern Negative for osteomyelitis Negative for soft tissue abscess Consider ultrasound arterial study of the right lower leg follow-up as clinically warranted
[2025-02-18] MEDS: SODIUM CHLORIDE 0.9% 1000 ML 1,000 ML 125 ML IV (19:37)
[2025-02-18] MEDS: oxyCODONE/APAP 5/325 TABLET 1 TAB PO (20:07)
[2025-02-19] VITALS (8 sets, daily range): BP systolic 124–161; BP diastolic 60–98; PULSE 95–110; RESP 17–20; TEMP 36.1–36.8; O2SAT 95–97; BMI 59.7
[2025-02-19 00:43] LABS: Partial Thromboplastin Time 40.6 Seconds (22.0-36.0)
[2025-02-19] MEDS: HEPARIN SOD INJ 5000 UNIT/ML VIAL 4000 UNIT IVP ×3 (01:19→18:24)
[2025-02-19] MEDS: Heparin/D5w 25K 250 ML Ivpb 25,000 UNIT/250 ML BAG 21.228 UNIT IV (05:41)
[2025-02-19 07:38] LABS: Basophils % (Auto) 0 % (0-2.5); Eosinophils # (Auto) 0.3 Thou/mm3 (0.0-0.5); Eosinophils % (Auto) 1 % (0-10); Hematocrit 40.2 % (41.0-53.0); Hemoglobin 13.8 g/dL (13.5-16.0); Immature Granulocytes % (Auto) 1 % (0-0); Immature Granulocytes Auto 0.22 Thou/mm3 (0.00-0.00); Lymphocytes # (Auto) 1.9 Thou/mm3 (1.0-4.8); Lymphocytes % (Auto) 10 % (10-50); Mean Corpuscular HGB Conc 34.3 g/dl (31.0-37.0); Mean Corpuscular Hemoglobin 30.2 pg (25.0-35.0); Mean Corpuscular Volume 88 fL (80-100); Monocytes # (Auto) 1.8 Thou/mm3 (0.0-0.8); Monocytes % (Auto) 9 % (0-12); Neutrophils % (Auto) 79 % (37-80); Nucleated Red Blood Cell % 0 /100 WBC (0); Platelet Count 308 Thou/mm3 (140-440); Red Blood Count 4.57 Miln/mm3 (4.50-5.90); White Blood Count 20.2 Thou/mm3 (3.8-10.6)
[2025-02-19 07:51] LABS: Partial Thromboplastin Time 38.9 Seconds (22.0-36.0)
[2025-02-19 08:06] LABS: Alanine Aminotransferase 57 U/L (10-49); Albumin, Serum 3.9 gm/dL (3.5-5.0); Albumin/Globulin Ratio 1.1 (1.2-2.2); Alkaline Phosphatase 108 U/L (46-116); Anion Gap 8 (7-16); Aspartate Amino Transferase 46 U/L (0-34); BUN/Creatinine Ratio 14 Ratio (12-20); Bilirubin,Total 1.1 mg/dL (0.3-1.2); Blood Urea Nitrogen 13 mg/dL (9-23); Calcium 8.9 mg/dL (8.3-10.6); Carbon Dioxide 22.4 mMol/L (20.0-31.0); Cardiac Risk Estimate 6.8 RATIO (4.0-6.7); Chloride 99 mMol/L (98-107); Cholesterol 130 mg/dL (132-200); Creatinine (Component) 0.9 mg/dL (0.6-1.3); Estimated Creatinine Clearance 183.8 mL/min (>60); Globulin 3.5 gm/dL (2.3-3.5); Glucose 108 mg/dL (74-106); HDL Cholesterol 19 mg/dL (40-60); LDL Cholesterol,Calculated 83 mg/dL (0-130); Osmolality,Calculated 260 (275-295); Sodium 129 mMol/L (136-145); Thyroid Stimulating Hormone 3.44 uIU/mL (0.55-4.78); Total Protein 7.4 gm/dL (5.7-8.2); Triglycerides 141 mg/dL (30-150); eGFR > 60 See Note
[2025-02-19] MEDS: PANTOPRAZOLE 40 MG TABLET PO (08:40)
[2025-02-19] MEDS: RINGERS LACTATED 1000 ML 1,000 ML 125 ML IV (11:59)
[2025-02-19] MEDS: PIPER/TAZO 3.375 GM PREMIX 3.375 GM/50 ML BAG IV ×2 (11:59→22:11)
[2025-02-19] MEDS: Vancomycin Inj 2,000 MG in SODIUM CHLORIDE 0.9% 500 ML 500 ML 150 MG IV ×2 (12:00→21:45)
--- NOTE | 2025-02-19 13:13 | PC.CC ---
Addendum entered by Corby Thomson RN 02/19/25 19:16: 1913 called [facility], spoke to Shakira for update. She stated pt is accepted, now pending a bed. She will call give accepting info once she has the bed. Addendum entered by Corby Thomson RN 02/19/25 19:02: 1846 received call from Shakira at [facility]. She stated she has her hospitalist Dr. Brown on the line wants to do peer to peer with Dr. Weber. Conference call connected. Addendum entered by Corby Thomson RN 02/19/25 18:21: 1810 received call from Shakria at [facility]. She stated she has her IR Dr. Pearl on the line wants to do peer to peer with Dr. Weber. Conference call connected. Addendum entered by Corby Thomson RN 02/19/25 17:52: 1750 received call from Desi at [facility] and initiated the transfer request. She stated thromolysis is done by IR at their facility. If we are requesting IR then the transfer is declined because IR is not an relays draftsperson service. If we are requesting vascular surgery, she would need auth before presenting the case. Addendum entered by Corby Thomson RN 02/19/25 17:28: 1727 called [facility], spoke to Shakira and initiated the transfer. Addendum entered by Corby Thomson RN 02/19/25 17:25: 1725 called [facility] to initiated the transfer, left VM. Addendum entered by Corby Thomson RN 02/19/25 16:56: 1655 clinicals sent to [facility] and [facility]. Due to working on multiple transfers, unable to work on it right away. Original Note: [address] Weber that pt needs to be transferred for acute DVT to right leg needs vascular surgery for thrombolysis.
--- NOTE | 2025-02-19 14:14 | ESPR_ITS ---
<Statement entered by Mikki Yap MD - 02/21/25 15:28> I Mikki Yap MD reviewed the note and agree with the resident's assessment & plan with exceptions as below. I have personally reviewed labs, imaging, home meds/prior records, examined the patient, formulated and discussed management plan with the IM team. [id number] male with morbid obesity presented to ED admitted for extensive occlusive DVT in multiple veins of right lower extremity. Continue IV heparin as per DVT protocol, IR not available for thrombectomy/local thrombolysis hence we will transfer patient to a higher level of care for potential thrombectomy. Will also treat for cellulitis with vancomycin and Zosyn, obtain CT with contrast right lower extremity to evaluate for deep tissue infection. Patient likely has unprovoked DVT, will evaluate further for hypercoagulability and malignancy. Will obtain CT chest/abdomen/pelvis as well, repeat CBC and chemistry panel every 12 hours. Will also obtain echocardiogram for potential right heart strain in the setting of subocclusive PE. Consult hematology/oncology for further recommendations. Documentation for date of: 02/19/25 Subjective Subjective Interval history: Patient is seen and examined at bedside No acute overnight events. Patient was admitted for acute DVT Patient was started on Heparin drip and thrombectomy/ thrombolysis not done due to limited resources CT angio chest and CT lower extremity with contrast did not show any significant abnormality Labs showed downtrending WBC, mild hyponatremia Currently, patient is on heparin drip and IV fluids Trying to transfer out the patient for thrombectomy/ thrombolysis Exam Vital Signs Temp Pulse Resp BP Pulse Ox O2 Del Method 97.2 F 103 H 20 142/98 H 97 Room Air 02/19/25 12:00 02/19/25 12:00 02/19/25 12:00 02/19/25 12:02/19/25 12:02/19/25 12:00 Narrative Exam General: Awake. HEENT: Normocephalic, atraumatic, mucous membranes moist. Heart: Regular rate and rhythm, no murmurs. Lungs: Clear to auscultation with no wheezing or crackles. Abdomen: Soft, nondistended, nontender, positive bowel sounds. ?No guarding or rebound tenderness. Neurologic: Alert and oriented x3, no gross neurological deficit, and patient able to move all 4 extremities. Extremities: Noted extensive swelling of right lower extremity extending up to upper thigh with multiple petechia, erythema. Noted mild tenderness. [place] all peripheral pulses Skin: No rash or ecchymoses. Objective Labs 02/19/25 07:14 02/19/25 07:14 Labs: Laboratory Results - last 24 hr 02/18/25 02/18/25 02/18/25 13:45 17:26 23:48 WBC 26.7 H D RBC 4.90 Hgb 14.8 Hct 43.4 MCV 89 MCH 30.2 MCHC 34.1 RDW Std Deviation 41.5 Plt Count 299 Neut % (Auto) 84 H Lymph % (Auto) 7 L [place] % (Auto) 7 Eos % (Auto) 1 Baso % (Auto) 0 Neut # (Auto) 22.4 H Lymph # (Auto) 1.8 [place] # (Auto) 2.0 H Eos # (Auto) 0.2 Baso # (Auto) 0.1 Immature Gran # (Auto) 0.18 H Absolute Nucleated RBC 0.00 Immature Gran % 1 H Nucleated RBC % 0 APTT 48.5 H 40.6 H Sodium 131 L Potassium 4.5 Chloride 96 L Carbon Dioxide 24.7 Anion Gap 10 BUN 17 Creatinine 1.1 Estim Creat Clear Calc 147.8 eGFR > 60 BUN/Creatinine Ratio 15 Glucose 137 H Calculated Osmolality 266 L Calcium 9.5 Corrected Calcium 9.5 Total Bilirubin 1.6 H AST 39 H ALT 56 H Alkaline Phosphatase 106 D Total Protein 8.4 H Albumin 4.5 Globulin 3.9 H Albumin/Globulin Ratio 1.2 Triglycerides Cholesterol LDL Cholesterol, Calc HDL Cholesterol Cholesterol/HDL Ratio TSH 02/19/25 07:14 WBC 20.2 H D RBC 4.57 Hgb 13.8 Hct 40.2 L MCV 88 MCH 30.2 MCHC 34.3 RDW Std Deviation 42.0 Plt Count 308 Neut % (Auto) 79 Lymph % (Auto) 10 [place] % (Auto) 9 Eos % (Auto) 1 Baso % (Auto) 0 Neut # (Auto) 16.0 H Lymph # (Auto) 1.9 [place] # (Auto) 1.8 H Eos # (Auto) 0.3 Baso # (Auto) 0.0 Immature Gran # (Auto) 0.22 H Absolute Nucleated RBC 0.00 Immature Gran % 1 H Nucleated RBC % 0 APTT 38.9 H Sodium 129 L Potassium 4.0 D Chloride 99 Carbon Dioxide 22.4 Anion Gap 8 BUN 13 Creatinine 0.9 Estim Creat Clear Calc 183.8 eGFR > 60 BUN/Creatinine Ratio 14 Glucose 108 H Calculated Osmolality 260 L Calcium 8.9 Corrected Calcium 9.0 Total Bilirubin 1.1 D AST 46 H ALT 57 H Alkaline Phosphatase 108 Total Protein 7.4 Albumin 3.9 D Globulin 3.5 Albumin/Globulin Ratio 1.1 L Triglycerides 141 Cholesterol 130 L LDL Cholesterol, Calc 83 HDL Cholesterol 19 L Cholesterol/HDL Ratio 6.8 H TSH 3.44 Quality Measures Quality Measures none Assessment & Plan Assessment Current Active Medications: Generic Name Dose Route Start Last Admin Trade Name Freq PRN Reason Stop Dose Admin Acetaminophen 650 mg 02/18/25 16:59 Acetaminophen 325 Mg Tablet PO 03/20/25 16:58 Q6H PRN Fever >100.4 Heparin Sodium/Dextrose 25,000 unit in 250 mls @ 17.962 mls/hr 02/18/25 16:30 02/19/25 09:29 Heparin In D5w Ivpb IV 03/04/25 16:29 15 units/kg/hr .[id number] MIKE 24.494 mls/hr Titration Protocol 11 UNITS/KG/HR Lactated Ringer's 1,000 mls @ 125 mls/hr 02/19/25 10:54 02/19/25 11:59 Lactated Ringers IV 02/19/25 18:53 125 mls/hr .Q8H ONE Administration Piperacillin/Tazobactam/Dextrose 3.375 gm in 50 mls @ 12.5 mls/hr 02/19/25 22:00 Zosyn IV 02/26/25 21:59 Q8HR MIKE Vancomycin HCl 2,000 mg/ 500 mls @ 150 mls/hr 02/19/25 11:30 02/19/25 12:00 Sodium Chloride IV 02/19/25 14:49 10 mg/min X1 ONE 150 mls/hr Administration 10 MG/MIN Vancomycin HCl 2,000 mg/ 500 mls @ 150 mls/hr 02/19/25 22:00 Sodium Chloride IV 02/26/25 21:59 Q12H MIKE 10 MG/MIN Ondansetron HCl 4 mg 02/18/25 16:59 Ondansetron Inj 2 Mg/Ml Inj 2 Ml IVP 03/20/25 16:58 Q6H PRN NAUSEA OR VOMITING Protocol Oxycodone/Acetaminophen 1 tab 02/18/25 16:59 02/18/25 20:07 Oxycodone/Apap 5/325 Tablet PO 02/23/25 16:58 1 tab Q6H PRN Administration Pain Scale 6 - 10 Pantoprazole Sodium 40 mg 02/19/25 09:00 02/19/25 08:40 Pantoprazole 40 Mg Tablet PO 03/21/25 08:59 40 mg QDAY MIKE Administration Pharmacy Consult 1 each 02/20/25 09:00 Vancomycin Pharmacy To Dose 1 Each Each IV 03/22/25 08:59 QDAY PRN PROTOCOL Sennosides 1 tab 02/18/25 16:59 Senna Tablet PO 03/20/25 16:58 QDAY PRN constipation Protocol Plan JaimeAmmon 29-year-old male with no significant past medical history presented to the hospital with chief complaints of right lower extremity pain and swelling since 1 week and admitted for acute DVT of right lower extremity # Acute DVT # With suspected superimposed cellulitis # To rule out malignancy - Patient presented to the hospital with chief complaints of right lower extremity pain and swelling - On physical examination, noted right lower extremity swelling, erythema and multiple petechiae extending up to mid thigh with mild to moderate tenderness - Vitals at the time of admission are significant for blood pressure 146/93 mmHg, pulse rate 123 bpm - Labs at the time of admission significant for leukocytosis, 26.7 predominantly neutrophils, sodium 131, chloride 96 - Venous Doppler of right lower extremity showed acute occlusive thrombus in the right lower extremity. - Patient was started on heparin drip in the ED and ED doctor reported that patient will undergo thrombolysis by interventional radiologist - Abdominal CT done on 02/16/2025 showed extensive lymphadenopathy in the abdomen Plan - Will continue heparin drip - Started on the IV fluids, NS at 125 mL/h - Trying to transfer outpatient for thrombectomy/thrombolysis - Started on Vancomycin and zosyn # Extensive abdominal lymphadenopathy # Lymphoma versus IBD versus malignancy vs idipoathic - Patient presented to the ED on 02/16/2025 with abdominal pain - Denies fever, chills, weight loss. - Abdomen/pelvis CT showed markedly abnormal small bowel loops in the mid abdomen, wall thickening and very pronounced mesenteric edema, with periaortic, pericaval and mesenteric lymphadenopathy. Plan - Will recommend patient to follow-up on outpatient with spinning frame cleaner Dr. Harris - Ordered cocci serology as patient is working on the [place], came back negative # Transaminitis # Hyperbilirubinemia - Total bilirubin 1.6, AST 39, ALT 56 - Likely in the setting of acute illness Plan - Will monitor LFT # Obesity BMI is 58.1 Plan - Recommended to lose weight on outpatient basis # Alcohol abuse - Patient is consuming alcohol, 12 packs every other day Plan - Counseled on alcohol cessation Hospital Maintenance: Dispo: Tele GI ppx: pantoprazole Diet: Regular IV lines: Peripheral Code status:Full Patient plan of care was discussed with the attending physician, Dr. Fracisco Weber, PGY1
[2025-02-19 14:30] LABS: Cocci Serology, IgM Negative (Negative)
--- NOTE | 2025-02-19 14:31 | XR_ITS ---
Examination: CTA chest with intravenous contrast 2-D reconstructions 3-D reconstructions, vascular Date and time of exam: February 19, 2025, 1525 hrs. Indications: Onset chest pain shortness of breath hypoxia today CTDI: vol (mGy) 25.9 DLP: (mGycm) 712 Technique: Multiple axial sections of the thorax have been obtained. 3 mm slice thickness, from below the hemidiaphragms to above the apices of the lungs. Mediastinal and lung density settings have been obtained. 2-D sagittal and coronal reconstructions. 3-D angiographic renderings, 3-D volume renderings, 3D post processing, vascular maximum intensity projections obtained. Contrast administered is 100 cc Isovue-370 intravenous. Low dose protocols were performed. One or more of the following dose reduction techniques were used; automated exposure control, adjustment of the mA and/or KV according to patient size, use of iterative reconstruction technique. Findings: No thoracic aortic aneurysmal dilatation or dissection Pulmonary artery segments are not enlarged. Pulmonary artery opacification peripheral branches is quite poor No filling defects are identified Mild vascular congestion. No lobar pneumonia or pulmonary edema Fatty infiltration throughout the liver Contracted gallbladder No pancreatic mass Atrophic left kidney Impression: Pulmonary artery opacification peripheral branches is quite poor No pulmonary artery emboli demonstrated
[2025-02-19] MEDS: oxyCODONE/APAP 5/325 TABLET 1 TAB PO (15:54)
[2025-02-19 17:01] LABS: Partial Thromboplastin Time 39.3 Seconds (22.0-36.0)
--- NOTE | 2025-02-19 18:20 | XR_ITS ---
Examination: Retroperitoneal ultrasound, complete Technique: Multiple high resolution grayscale images of the retroperitoneum obtained, including kidneys and bladder. Exam date and time:February 19, 2025 10:20 PM INDICATIONS: Abdominal and flank pain 3 days FINDINGS: Right kidney 16.0 cm cortex 2.7 cm Left kidney 9.7 cm renal cortex 1.8 cm Mild to moderate bilateral renal parenchymal scar formation No hydronephrosis No bladder mass or bladder calculi Bladder prevoid volume 478 cc Significant prostatomegaly, 6.0 x 4.8 x 5.2 cm no prostate nodules IMPRESSION: Atrophic left kidney. No hydronephrosis Significant prostatomegaly
[2025-02-19] MEDS: Heparin/D5w 25K 250 ML Ivpb 25,000 UNIT/250 ML BAG 24.494 UNIT IV (18:26)
--- NOTE | 2025-02-19 19:01 | PD.RESDS ---
Planned Discharge Date 02/19/25 DS: Providers Provider Date of admission: 02/18/25 16:59 Primary care physician: Physician No Primary/Family Admitting Provider: Mikki Yap MD Attending Provider on Admission: Mikki Yap MD Attending Provider on DC: Peter Weber MD Discharging Provider: Peter Weber MD DS: Diagnosis Problem List Completed Was Problem List Reviewed/Reconciled?: Yes Hospital Course Hospital Course Hospital course: A 29-year-old male with no significant past medical history presented to the hospital with chief complaints of right lower extremity pain and swelling since 1 week and admitted for Acute DVT. Hospital course: Vitals at the time of admission are significant for blood pressure 146/93 mmHg, pulse rate 123 bpm .Labs at the time of admission significant for leukocytosis, 26.7 predominantly neutrophils, sodium 131, chloride 96, total bilirubin 1.6, AST 39, ALT 56. Venous Doppler of right lower extremity showed acute occlusive thrombus in the right lower extremity. Patient was started on heparin drip. Abdominal CT done on 02/16/2025 showedmarkedly abnormal small bowel loops in the mid abdomen, wall thickening and very pronounced mesenteric edema, with periaortic, pericaval and mesenteric lymphadenopathy. As we do not have interventional radiologist on the weekend and he is not doing the procedure, patient seems to benefit from acute thrombolysis for which patient is being transferred to higher center for further management including thrombolysis/thrombectomy based on patient's clinical condition and surgeon's preference. # Acute DVT # With suspected superimposed cellulitis # Extensive abdominal lymphadenopathy # Lymphoma versus IBD versus malignancy vs idipoathic # Transaminitis # Hyperbilirubinemia # Obesity # Alcohol abuse Patient plan of care was discussed with the attending physician, Dr. Fracisco Weber, PGY1 Time Spent with Patient Time attestation: Total time spent providing and/or coordinating discharge services: Time spent: Greater than 30 minutes Exam Vital Signs Temp Pulse Resp BP Pulse Ox O2 Del Method 97.2 F 95 20 137/97 H 97 Room Air 02/19/25 15:52 02/19/25 16:00 02/19/25 15:52 02/19/25 15:52 02/19/25 15:52 02/19/25 15:52 Narrative Exam General: Awake. HEENT: Normocephalic, atraumatic, mucous membranes moist. Heart: Regular rate and rhythm, no murmurs. Lungs: Clear to auscultation with no wheezing or crackles. Abdomen: Soft, nondistended, nontender, positive bowel sounds. ?No guarding or rebound tenderness. Neurologic: Alert and oriented x3, no gross neurological deficit, and patient able to move all 4 extremities. Extremities: Noted extensive swelling of right lower extremity extending up to upper thigh with multiple petechia, erythema. Noted mild tenderness. [place] all peripheral pulses Skin: No rash or ecchymoses. Discharge Plan Problem List Was Problem List Reviewed/Reconciled?: Yes Plan Patient Disposition: [facility] Facility Prescriptions/Referrals Referrals: No Primary/Family,Physician [Primary Care Provider] - Patient/Caregiver Discharge Instructions Education Materials: Procedures for Deep Vein Thrombosis, Preventing Deep Vein Thrombosis Print Language: [place] Stand Alone Forms: Sujatha Award Info., Patient Portal Info Letter Quality Discharge Quality Measures VTE therapy
--- NOTE | 2025-02-19 21:00 | PC.NURSE ---
[facility] center called with bed info. pt going to remote tele Room [id number] Truong accepting. Call Transfer center for update ETA
[2025-02-20] VITALS: BP 108/68; PULSE 104; PULSE 106; RESP 21; TEMP 36.4; O2SAT 95
[2025-02-20] MEDS: oxyCODONE/APAP 5/325 TABLET 1 TAB PO (01:20)
[2025-02-20] MEDS: HEPARIN SOD INJ 5000 UNIT/ML VIAL 8000 UNIT IVP (02:09)
--- NOTE | 2025-02-20 02:15 | PC.NURSE ---
Follow up call made to receiving CATY Murphy at [facility], updated of patient last medication. Inform patient on his way for transfer. All belongings sent.
[2025-02-21 13:17] LABS: Cocci Serology, IgG Negative (Negative)
--- NOTE | 2025-02-23 09:05 | PC.CM ---
I received a call from Devorah from [facility] asking me to fax over reports on this patient who was transferred to them on 02/20. She states she got the images pushed over but she did not have the reports. I sent reports today.
== END 2025-02-20 02:13 | disposition short-term general hospital (02) | DRG 197 ==
LOC: SERX 16:45 → SERHOLD 17:24 → S3NX 21:41
PROVIDERS: Nurse Practitioner Family; Student in an Organized Health Care Education/Training Program; Admitting Provider Student in an Organized Health Care Education/Training Program; Emergency Provider Emergency Medicine; Referring Provider Emergency Medicine; Visit Provider Student in an Organized Health Care Education/Training Program
DX: I82.411 Acute embolism and thrombosis of right femoral vein (principal); F10.10 Alcohol abuse, uncomplicated; E66.01 Morbid (severe) obesity due to excess calories; Z68.43 Body mass index [BMI] 50.0-59.9, adult; L03.115 Cellulitis of right lower limb; I82.401 Acute embolism and thrombosis of unspecified deep veins of right lower extremity; J18.9 Pneumonia, unspecified organism; R17 Unspecified jaundice; E87.1 Hypo-osmolality and hyponatremia; Z86.718 Personal history of other venous thrombosis and embolism
CPT/HCPCS: 36415; 71275; 73701; 76770; 80053; 80061; 82043; 82570; 84443; 85025; 85610; 85730; 86331; 86635; 87811; 93225; 93971; 99291; A4649; J1644; J2543; J3370; J7030; J7120; J7999; Q9967; A9270